=== PATIENT | male | born 1985 | race Caucasian/White ===

== ENCOUNTER 2017-01-17 10:33 | Emergency (ER) | payer OTHER ==
[2017-01-17 11:45] LABS: HEMOGLOBIN 15.2 gm/dl (14.0-17.5); RED BLOOD COUNT 4.81 M/UL (4.20-5.50); WHITE BLOOD COUNT 9.6 K/UL (4.5-11.0)
[2017-01-17 12:03] LABS: BUN/CREATININE RATIO 16 (0-10)
== END 2017-01-17 13:10 | disposition home or self-care (01) ==
LOC: ER1 10:33
PROVIDERS: Emergency Medicine
DX: S90.32XA Contusion of left foot, initial encounter (principal); L03.116 Cellulitis of left lower limb; F17.200 Nicotine dependence, unspecified, uncomplicated; W20.8XXA Other cause of strike by thrown, projected or falling object, initial encounter; Y92.009 Unspecified place in unspecified non-institutional (private) residence as the place of occurrence of the external cause; Z23 Encounter for immunization
CPT/HCPCS: 73630; 80048; 85025; 90471; 90714; 99283

== ENCOUNTER 2021-07-24 17:23 | Emergency (ER) | payer OTHER ==
[~2021-07-24 17:23] MED LIST: ERYTHROMYCIN O3.5 GM OU; FLOMAX0.4 MG PO; NORCO 5-325 TA1 EACH PO; ONDANSETRON ODT4 MG PO; PERCOCET 5/325 T1 EA PO
[2021-07-24 17:54] LABS: HEMOGLOBIN 15.2 gm/dl (14.0-17.5); RED BLOOD COUNT 4.93 M/UL (4.20-5.50); WHITE BLOOD COUNT 13.2 K/UL (4.5-11.0)
[2021-07-24] MEDS ORDERED: HYDROCODON-ACE1 EAC4 PO (20:20)
[2021-07-27] MEDS ORDERED: TORADOL 10 MG T10 MG PO (08:07)
[2021-07-27] MEDS ORDERED: FLOMAX0.4 MG PO (08:07)
== END 2021-07-24 20:50 | disposition home or self-care (01) ==
LOC: ER1 17:23
DX: N13.2 Hydronephrosis with renal and ureteral calculous obstruction (principal); N19 Unspecified kidney failure; Z20.822 Contact with and (suspected) exposure to COVID-19
CPT/HCPCS: 80053; 81001; 83690; 85025; 96374; 96375; 99284; J2270; J2405; U0003

== ENCOUNTER → 2021-07-25 | Outpatient (CLI) | payer OTHER ==
[~2021-07-25] MED LIST changes: +HYDROCODON-ACE1 EAC4 PO; +TORADOL 10 MG T10 MG PO
[2021-07-25 12:20] LABS: BUN/CREATININE RATIO 15 (0-10)
== END ==
LOC: LAB 10:35
PROVIDERS: Emergency Medicine
DX: N17.9 Acute kidney failure, unspecified (principal)
CPT/HCPCS: 36415; 80048